=== PATIENT | male | born 1930 | race Caucasian/White ===

== ENCOUNTER 2016-12-19 06:38 | Day surgery (SDC) | payer MEDICARE, OTHER ==
[2016-12-19] MEDS ORDERED: BRIMONIDINE 0.2% OPHTH DROPS 5 ML ONE ×2 (06:58→07:08)
[2016-12-19] MEDS ORDERED: TIMOLOL 0.5% OPHTH DROPS ONE ×2 (06:58→07:08)
[2016-12-19] MEDS ORDERED: LACTATED RINGERS 500 ML IV ONE (07:10)
[2016-12-19] MEDS ORDERED: KETOROLAC 0.45% OPHTH DROPS ONE (07:12)
[2016-12-19] MEDS ORDERED: PHENYLEPHRINE 2.5% OPHTH 2 ML DROPS ONE (07:12)
[2016-12-19] MEDS ORDERED: CYCLOPENTOLATE 1% OPHTH DROPS 2 ML ONE (07:13)
[2016-12-19] MEDS ORDERED: PROPARACAINE 0.5% OPHTH DROPS 15 ML ONE (07:13)
[2016-12-19] MEDS ORDERED: PHENYLEPHRINE 2.5% OPHTH 2 ML DROPS OPTH ONE (07:21)
[2016-12-19] MEDS ORDERED: PROPARACAINE 0.5% OPHTH DROPS 15 ML OPTH ONE ×2 (07:21→08:03)
[2016-12-19] MEDS ORDERED: CYCLOPENTOLATE 1% OPHTH DROPS 2 ML OPTH ONE (07:21)
[2016-12-19] MEDS ORDERED: KETOROLAC 0.45% OPHTH DROPS OPTH ONE (07:21)
[2016-12-19] MEDS ORDERED: MIDAZOLAM 2 MG/2 ML VIAL IVP ONE (08:00)
[2016-12-19] MEDS ORDERED: EPINEPHrine 1 MG/ML AMP IVP ONE (08:02)
[2016-12-19] MEDS ORDERED: BRIMONIDINE 0.2% OPHTH DROPS 5 ML OPTH ONE (08:02)
[2016-12-19] MEDS ORDERED: BSS/LIDOCAINE/EPINEPHRINE 1 ML SYRINGE IO ONE ×2 (08:03)
[2016-12-19] MEDS ORDERED: TIMOLOL 0.5% OPHTH DROPS OPTH ONE (08:03)
[2016-12-19] MEDS ORDERED: TRIAMCIN/MOXIFLOX/VANCO 1 ML VIAL IO ONE ×2 (08:03)
[2016-12-19] MEDS ORDERED: CHONDR SULF/HYALURONATE SYRINGE IO ONE (08:03)
[2016-12-19 08:55] VITALS: BP 133/63
--- NOTE | 2016-12-19 11:18 | OPERATIVE REPORT ---
DATE OF SURGERY: 12/19/2016 00:00:00 PREOPERATIVE DIAGNOSIS: Visually significant cataract, left eye. Cataract surgery was performed on th e right eye elsewhere in 2009. POSTOPERATIVE DIAGNOSIS: Visually significant cataract, left eye. Cataract surgery was performed on t he right eye elsewhere in 2009. NAME OF PROCEDURE: Phacoemulsification posterior chamber intraocular lens implant, left eye. SURGEON: Jaime Cristina MD. ANESTHESIA: Monitored anesthesia care. COMPLICATIONS: None. 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 Best corrected visual acuity was 20/4 0 with glare to 20/70 in the left eye. Indications for surgery were overall decrease in vision and di fficulty seeing words and game scores on TV. He was consented at length concerning the risks and bene fits of cataract surgery, after which he expressed a desire to proceed with surgery. OPERATIVE PROCEDURE: The patient was taken into OR #2 and placed under monitored anesthesia care. A s urgical time-out was conducted confirming the correct patient, correct procedure, and correct surgica l site. He was given topical anesthesia and then prepped and draped in the usual sterile fashion. The eye was entered at the 6- and 3 o'clock positions. Intracameral Shugarcaine was injected into the an terior chamber followed by Viscoat. A continuous tear curvilinear capsulorrhexis was performed. The n ucleus was hydrodissected and phacoemulsified. Cortex was evacuated using automated infusion aspirati on. Provisc was injected into the capsular bag and a 20.0 Diopter intraocular lens was inserted into the bag. Approximately 0.7 mL of a mixture of triamcinolone, moxifloxacin, and vancomycin was injecte d subconjunctivally in the superior quadrant for infection and inflammation prophylaxis. I/A was used to evacuate the viscoelastic materials. The eye was inflated to a physiologic pressure using balance d salt solution and found to be watertight. The patient was taken from the operating room in good con dition and given postoperative instructions. JOB #: [id number] EXT JOB #:[id number]
== END 2016-12-19 06:39 | disposition home or self-care (01) ==
LOC: SDS 06:38
PROVIDERS: ATTEND Ophthalmology
PROC: 08RK3JZ Replacement of Left Lens with Synthetic Substitute, Percutaneous Approach (ICD-10-PCS; principal; 2016-12-19 08:00)
DX: H25.812 Combined forms of age-related cataract, left eye (principal)
CPT/HCPCS: 66984; A9270; J3490; V2632

== ENCOUNTER 2018-12-23 16:08 | Emergency (ER) | payer MEDICARE, OTHER ==
[2018-12-23] MEDS ORDERED: CLOPIDOGREL 300 MG TABLET PO STA (16:31)
[2018-12-23] MEDS ORDERED: ASPIRIN CHEW 81 MG TABLET PO STA (16:31)
[2018-12-23] MEDS ORDERED: HEPARIN 25000UNITS/500ML (D5W) 25,000 UNIT/500 ML BAG IV STA (16:33)
[2018-12-23 16:35] LABS: BASOPHILS % (AUTO) 0.5 %; EOSINOPHILS # (AUTO) 0.1 10^3/uL (0.0-0.7); EOSINOPHILS % (AUTO) 0.6 %; HGB - HEMOGLOBIN 15.9 g/dL (14.0-18.0); LYMPHOCYTES # (AUTO) 1.6 10^3/uL (1.5-3.5); LYMPHOCYTES % (AUTO) 18.7 %; MEAN CORPUSCULAR HEMOGLOBIN 31.9 pg (27.0-31.0); MEAN CORPUSCULAR HGB CONC 33.8 g/dL (32.0-36.0); MEAN CORPUSCULAR VOLUME 94.4 fL (80.0-94.0); MEAN PLATELET VOLUME 8.5 fL (7.4-11.4); MONOCYTES # (AUTO) 0.6 10^3/uL (0.0-1.0); MONOCYTES % (AUTO) 6.7 %; NEUTROPHILS # (AUTO) 6.2 10^3/uL (1.5-6.6); PLT - PLATELET COUNT 178 10^3/uL (130-450); RED BLOOD COUNT 4.99 10^6/uL (4.70-6.10); RED CELL DISTRIBUTION WIDTH 13.3 % (12.0-15.0); WHITE BLOOD COUNT 8.5 x10^3/uL (4.8-10.8)
--- NOTE | 2018-12-23 16:36 | ED Physician Documentation ---
PD HPI CHEST PAIN - Stated complaint Stated Complaint: CHEST PX/WEAK - Chief complaint Chief Complaint: Cardiac - History obtained from History obtained from: Patient, Family - History of Present Illness Timing - onset: Enter time (1430), Today Timing - onset during: Rest Timing - duration: Hours Timing - details: Abrupt onset, Still present Quality: Pressure, Tightness, Aching Location: Left chest Radiation: No: Jaw, Neck, Back, Abdominal, Left upper extremity, Right upper extremity Improved by: Rest Associated symptoms: No: Shortness of air, Diaphoresis, Nausea, Vomiting, Feeling faint / dizzy, General Weakness, Palpitations, Cough Similar symptoms before: Has not had sx before Recently seen: Not recently seen - Additional information Additional information: Previously well 88-year-old male who indicates that he spends a lot of time outside chopping wood and is very active is developed anterior chest pain. He does not have any radiation he does not have diaphoresis he did have some slight nausea. He states this happened about 2 hours ago and he had a similar episode 2 nights ago that lasted 2 hours and resolved he went to bed yesterday was fine. He denies any recent illness. He states that he does not take any medications does not go to the doctor. He has had an operation on his eyes his knee and a hernia operation. He denies any recent decrease in his exertional stamina. States that he has been feeling well recently. Review of Systems Constitutional: denies: Fever Eyes: denies: Decreased vision Ears: denies: Ear pain Nose: denies: Rhinorrhea / runny nose, Congestion Throat: denies: Sore throat Cardiac: reports: Chest pain / pressure, Pedal edema (similar to always). denies: Palpitations, Calf pain Respiratory: denies: Dyspnea, Cough GI: reports: Nausea. denies: Abdominal Pain, Vomiting : denies: Dysuria, Frequency Skin: denies: Rash Musculoskeletal: denies: Neck pain, Back pain, Extremity pain Neurologic: denies: Generalized weakness, Focal weakness, Numbness PD PAST MEDICAL HISTORY - Past Medical History Cardiovascular: None Respiratory: None Endocrine/Autoimmune: None GI: None : None HEENT: None Psych: None Musculoskeletal: None Derm: None - Past Surgical History Ortho: Arthroscopic surgery HEENT: Cataracts - Present Medications Home Medications: Ambulatory Orders Medication Instructions Recorded Confirmed No Known Home Medications 12/18/16 12/18/16 - Allergies Allergies/Adverse Reactions: Allergies Allergy/AdvReac Type Severity Reaction Status Date / Time No Known Drug Allergies Allergy Verified 12/23/18 16:19 PD ED PE NORMAL - Vitals Vital signs reviewed: Yes (hypertensive mild and bradycardic.) - General General: Alert and oriented X 3, No acute distress, Well developed/nourished - HEENT HEENT: Atraumatic, PERRL, EOMI - Neck Neck: Supple, no meningeal sign, No bony TTP - Cardiac Cardiac: No murmur, Other (anabelle ) - Respiratory Respiratory: No respiratory distress, Clear bilaterally - Abdomen Abdomen: Soft, Non tender - Back Back: No CVA TTP, No spinal TTP - Derm Derm: Normal color, Warm and dry, No rash - Extremities Extremities: No deformity, Other (trace edema bilat) - Neuro Neuro: Alert and oriented X 3, executive manager 2-12 intact, No motor deficit, No sensory deficit, Normal speech Eye Opening: Spontaneous Motor: Obeys Commands Verbal: Oriented GCS Score: 15 - Psych Psych: Normal mood, Normal affect Results - Vitals Vitals: Vital Signs - 24 hr 12/23/18 12/23/18 16:10 16:19 Temperature 35.8 C L Heart Rate 51 L 57 L Respiratory 19 23 Rate Blood Pressure 146/76 H 143/88 H O2 Saturation 99 95 Oxygen O2 Source Room air - EKG (time done) 1611 Rate: Rate (enter#) (56) Intervals: RBBB, Other (Short NC) Ischemia: ST elevation c/w ischemia (Acute anterolateral) Compare to prior EKG: Old EKG unavailable Computer interpretation: Agree with computer - Labs Labs: Laboratory Tests 12/23/18 12/23/18 12/23/18 16:27 16:27 16:27 WBC 8.5 RBC 4.99 Hgb 15.9 Hct 47.1 MCV 94.4 H MCH 31.9 H MCHC 33.8 RDW 13.3 Plt Count 178 MPV 8.5 Neut # (Auto) 6.2 Lymph # (Auto) 1.6 [place] # (Auto) 0.6 Eos # (Auto) 0.1 Baso # (Auto) 0.0 Absolute Nucleated RBC 0.00 Nucleated RBC % 0.0 Sodium 140 Potassium 4.2 Chloride 101 Carbon Dioxide 27 Anion Gap 12.0 BUN 18 Creatinine 1.0 Estimated GFR (MDRD) 71 L Glucose 119 H Calcium 9.5 Total Bilirubin 1.1 H AST 38 ALT 16 Alkaline Phosphatase 94 Troponin I High Sens 2075.4 H* Total Protein 8.2 Albumin 4.3 Globulin 3.9 Albumin/Globulin Ratio 1.1 Lipase 29 PD MEDICAL DECISION MAKING - ED course Complexity details: reviewed old records, reviewed results, re-evaluated patient, considered differential, d/w patient, d/w family ED course: 88-year-old male with acute chest pain has the appearance of acute ST elevation AL on his electrocardiogram on admission to the emergency department. The emergency department physician Dr. Lugo at [facility] is contacted by telephone and will accept the patient in transfer arrangements are made for EMS to transfer the patient stat and here in the emergency department the patient is given aspirin Plavix and started on heparin. Departure - Departure Disposition: 02 Transfer Acute Care Hosp Clinical Impression: STEMI (ST elevation myocardial infarction) Qualifiers: Involved coronary artery: unspecified coronary artery Qualified Code(s): I21.3 - ST elevation (STEMI) myocardial infarction of unspecified site Condition: Serious Discharge Date/Time: 12/23/18 16:54
[2018-12-23 16:42] VITALS: BP 143/88
[2018-12-23 16:48] LABS: ALBUMIN 4.3 g/dL (3.2-5.5); ALBUMIN/GLOBULIN RATIO 1.1 (1.0-2.2); BILIRUBIN,TOTAL 1.1 mg/dL (0.2-1.0); CALCIUM 9.5 mg/dL (8.5-10.3); TOTAL PROTEIN 8.2 g/dL (6.7-8.2)
--- NOTE | 2018-12-23 16:58 | XRAY Report ---
Reason: chest pain Procedure Date: 12/23/2018 Accession Number: [id number] / [id number] Procedure: XR - Chest 1 View X-Ray CPT Code: 51666 FULL RESULT: EXAM: CHEST RADIOGRAPHY EXAM DATE: 12/23/2018 04:34 PM. CLINICAL HISTORY: Chest pain. COMPARISON: None. TECHNIQUE: 1 view. FINDINGS: Lungs/Pleura: Low lung volumes. Mild bibasal opacity, atelectasis or infiltrate. No significant pleural effusion or evidence of pneumothorax. Mediastinum: Heart size is normal. Mildly tortuous, calcified aorta. Other: None. IMPRESSION: Low lung volumes with mild bibasal opacity, atelectasis or infiltrate. RADIA
== END 2018-12-23 16:54 | disposition short-term general hospital (02) ==
LOC: ED 16:08
DX: I21.3 ST elevation (STEMI) myocardial infarction of unspecified site (principal)
CPT/HCPCS: 36415; 71045; 80053; 83690; 84484; 85025; 93005; 96365; 96375; 99284; 99285; A9270

== ENCOUNTER 2018-12-23 16:53 | Outpatient (CLI) | payer MEDICARE, OTHER | END 2018-12-23 16:54 | disposition short-term general hospital (02) | LOC: EMS 16:53 | PROVIDERS: ATTEND Surgery | DX: R07.9 Chest pain, unspecified (principal) | CPT/HCPCS: A0425; A0426 ==

== ENCOUNTER 2019-06-09 08:00 | Outpatient (CLI) | payer MEDICARE, OTHER ==
[2019-06-09 17:38] LABS: CHOL/HDL RATIO 2.6 (<5.0); CHOLESTEROL 151 mg/dL; HDL CHOLESTEROL 57 mg/dL; LDL CHOLESTEROL,CALCULATED 81 mg/dL; LDL/HDL RATIO 1.4 (<3.6); VLDL CHOLESTEROL 13 mg/dL
== END 2019-06-09 23:59 | disposition home or self-care (01) ==
LOC: LAB.S 08:00
PROVIDERS: ATTEND Registered Nurse
DX: E78.49 Other hyperlipidemia (principal)
CPT/HCPCS: 36415; 80061; 83721